=== PATIENT | male | born 1985 | race Caucasian/White ===

== ENCOUNTER 2023-06-17 09:21 | Emergency (ER) | payer OTHER, SELFPAY ==
[2023-06-17 09:28] VITALS: BP 121/76
[2023-06-17 09:42] LABS: % Basophils 0.3 % (0-2); % Eosinophils 2.3 % (0-6); % Immature Granulocytes 0.3 % (0-0.5); % Lymphocytes 44.5 % (20.5-51.1); % Monocytes 6.8 % (1.7-9.3); % Neutrophils 45.8 % (42.2-75.2); Absolute Eosinophils 0.1 10^3/uL (0-0.7); Absolute Lymphocytes 1.8 10^3/uL (1.2-3.4); Absolute Monocytes 0.3 10^3/uL (0.1-0.6); Absolute Neutrophils 1.8 10^3/uL (1.4-6.5); Hematocrit 43.1 % (39.0-52.0); Hemoglobin 14.7 g/dL (13.0-18.0); Mean Corp Hgb Conc. 34.1 g/dL (33.0-37.0); Mean Corpuscular Hgb 27.4 pg (27.0-31.0); Mean Corpuscular Volume 80.3 fL (80.0-94.0); Mean Platelet Volume 11.1 fL (7.4-10.4); Nucleated Red Blood Cells % 0 % (-); Platelet Count 165 10^3/uL (130-400); Red Blood Cell Count 5.37 10^6/uL (4.70-6.10); Red Cell Dist. Width 12.4 % (11.5-14.5)
[2023-06-17 10:02] LABS: ALT (SGPT) 44 U/L (0-50); AST (SGOT) 28 U/L (17-59); Albumin 4.3 g/dl (3.5-5.0); Alkaline Phosphatase 72 U/L (38-126); Blood Urea Nitrogen 12 mg/dl (9-20); Calcium 9.4 mg/dl (8.4-10.2); Carbon Dioxide 29 mmol/L (22-30); Chloride 105 mmol/L (98-107); Glucose 106 mg/dl (70-99); Lipase 93 U/L (23-300); Sodium 138 mmol/L (135-145); Total Bilirubin 0.9 mg/dl (0.2-1.3); Total Protein 7.1 g/dl (6.3-8.2); eGFR > 60.00
[2023-06-17 10:10] LABS: Troponin I < 0.012 ng/ml
--- NOTE | 2023-06-17 11:49 | ED.GENMED ---
History of Present Illness
General
Chief Complaint: Chest Pain
Source: patient
Exam Limitations: none
Time Seen by Provider: 06/17/23 10:30
Nursing documentation reviewed up to this point in time: agreed with
Travel History
Have you had any contact with someone who has COVID-19?: No
Do you have any symptoms of coronavirus? Fever > 100 degrees, chills, cough, shortness of breath, sore throat, loss of taste or smell, muscle aches, or headache?: No
History of Present Illness
History of Present Illness:
38-year-old male with history history of GERD presenting to the emergency department today with concerns of discomfort radiating from the upper abdomen to through the chest. Also has noticed a slight shortness of breath woke him up at 2 AM this
morning roughly 8 hours prior to arrival to the emergency department. Claims the pain is mild and pressure achy in character. No vomiting no diaphoresis. Denies any history of blood clots leg swelling recent trauma surgery immobilization.
Review of Systems
Review of Systems
Allergies reviewed?: Yes
All Other Systems: ROS reviewed and negative except as documented in HPI and ROS
Phy Exam
Physical Exam
Physical Exam:
GENERAL: Alert , in no apparent distress
EYE: pupils equal and reactive
NECK: Supple, no significant adenopathy.
ENT: o/p clr, mmm.
CARDIAC: Regular rate and rhythm .
LUNGS: Clear breath sounds bilaterally, no acute respiratory distress, no wheezes/rales/rhonchi
ABDOMEN: Soft, without focal tenderness, no r/g, no cvat
NEUROLOGICAL: Alert and oriented, no focal neuro deficits
SKIN: Warm and dry, skin intact.
MUSCULOSKELETAL: No edema, well perfused.
PSYCH: Normal and appropriate interaction.
Scores
Heart Score for Chest Pain Patients
STEMI patient?: No
History: Slightly or Non-Suspicious
ECG: Normal
Age: </= 45 years
Risk Factors: No Risk Factors
Troponin: </= Normal Limit
Heart Score for Chest Pain Patients: 0
Heart Score Risk: 2.5% MACE over next 6 weeks
Course
Orders/Labs/Results
Orders:
Orders
06/17/23 09:27
Electrocardiogram (*1) Urgent
Reason for Study: Chest Pain
EKG- Treatment ONCE
06/17/23 09:37
Complete Blood Count/With Diff Urgent
Comprehensive Metabolic Panel Urgent
Lipase Urgent
Troponin I Urgent
06/17/23 10:52
Chest [CR Chest - 2 Views ] Urgent
Comment:
Reason For Exam: cp
Abnormal Lab Results
06/17/23
09:37
WBC 4.0 L 10^3/uL
(4.8-10.8)
MPV 11.1 H fL
(7.4-10.4)
Glucose 106 H mg/dl
(70-99)
06/17/23 09:37
06/17/23 09:37
Vital Signs
Initial and Last Documented VS:
Initial Vital Signs
Temp Pulse Resp BP Pulse Ox
98.6 F 78 16 121/76 98
06/17/23 09:28 06/17/23 09:28 06/17/23 09:28 06/17/23 09:28 06/17/23 09:28
Last Documented Vital Signs
Temp Pulse Resp BP Pulse Ox
98.6 F 78 16 121/76 98
06/17/23 09:28 06/17/23 09:28 06/17/23 09:28 06/17/23 09:28 06/17/23 09:28
MDM/Problems Addressed
MDM/Problems Addressed:
38-year-old male presenting to the emergency department today with concerns of chest discomfort ongoing for roughly 8 hours prior to arrival to the emergency department described as achy pressure. Vital signs here are normal patient well-appearing
no acute distress normal heart lung examination. Normal labs troponin negative lipase negative no reproducible abdominal tenderness. Chest x-ray without acute findings EKG is normal in appearance patient has a low heart score low risk for ACS.
Very low risk for dissection as symptoms do not seem to be consistent with this and normal chest x-ray. Patient is also PERC negative. No apparent life threat cause of symptoms at this time advised for close outpatient follow-up. Return
precautions given.
*Critical Care Note
Total Time (30-74mins, 75-104mins- exclusive of procedures): Not Applicable
ED Attending Note
-
Portions of this chart may have been created with voice recognition software.� Occasional wrong word or��sound alike� substitutions may have occurred due to the inherent limitations of voice recognition software.
Discharge Plan
Departure
Patient Disposition: Home (Routine Discharge)
Date of Disposition: 06/17/23
Time of Disposition: 12:02
Patient with high blood pressure during this ER visit?: No
Condition: Good
Covid-19: Not Applicable
Discharge Problem:
Chest pain
Instructions: Chest Pain PCP Follow Up
Prescriptions:
No Action
famotidine 20 mg tablet
20 mg PO BID Qty: 14 0RF
Referrals:
Bessie Polanco, DO [Family Provider] -
Activity Restrictions/Additional Instructions:
You came to the emergency department today with concerns of chest discomfort. He had a reassuring evaluation. Please go closely with your primary care doctor within 1 to 2 weeks for reassessment. Return to the emergency department for worsening,
new or concerning symptoms.
Interventions
Interventions:
*Risk Screen - Suicide Last Done: 06/17/23 11:03
*General Assessment Last Done: 06/17/23 11:03
*Neglect/Abuse Screening Last Done: 06/17/23 11:03
ED- Fall Risk Assessment Last Done: 06/17/23 11:03
*ED COVID-19 Vaccine History Last Done: 06/17/23 09:28
ED- Cardiac Assessment Last Done: 06/17/23 11:03
[2023-06-17 12:10] VITALS: BP 120/70
== END 2023-06-17 12:15 | disposition home or self-care (01) ==
LOC: EMR 09:21
PROVIDERS: EMERGENCY PHYSICIAN Emergency Medicine; FAMILY PHYSICIAN Family Medicine
DX: R07.89 Other chest pain (principal); K21.9 Gastro-esophageal reflux disease without esophagitis
CPT/HCPCS: 99285; 71046; 80053; 83690; 84484; 85025; 93005

== ENCOUNTER → 2023-10-25 10:25 | Outpatient (REF) | payer OTHER, SELFPAY | LOC: RAD 10:25 | PROVIDERS: ATTENDING PHYSICIAN Internal Medicine Cardiovascular Disease; FAMILY PHYSICIAN Nurse Practitioner Family | DX: R07.89 Other chest pain (principal) | CPT/HCPCS: 75574; Q9967 ==

== ENCOUNTER 2024-08-26 21:00 | Emergency (ER) | payer OTHER, SELFPAY ==
[2024-08-26 21:09] VITALS: BP 133/81
--- NOTE | 2024-08-26 23:01 | ED.GENMED ---
History of Present Illness
General
Chief Complaint: Headache
Source: patient
Exam Limitations: none
Time Seen by Provider: 08/26/24 23:00
History of Present Illness
History of Present Illness:
See MDM
Past History
Past History
ED Past Medical History: Asthma and GERD
ED Past Surgical History: Other (Nasal Surgery)
Social History
Tobacco: Non-smoker
Alcohol: None
Phy Exam
Physical Exam
Physical Exam:
See MDM
Course
Orders/Labs/Results
Orders:
Orders
08/26/24 21:[address] [CT Head W/o Iv Contrast] Urgent
Comment:
Reason For Exam: head pain x 4 days
08/26/24 23:29
Dexamethasone Pf [Decadron] 10 mg PO NOW STA
Ibuprofen [Motrin] 600 mg PO NOW STA
Vital Signs
Initial and Last Documented VS:
Initial Vital Signs
Temp Pulse Resp BP Pulse Ox
98.6 F 77 16 133/81 99
08/26/24 21:09 08/26/24 21:09 08/26/24 21:09 08/26/24 21:09 08/26/24 21:09
Last Documented Vital Signs
Temp Pulse Resp BP Pulse Ox
98.6 F 77 16 133/81 99
08/26/24 21:09 08/26/24 21:09 08/26/24 21:09 08/26/24 21:09 08/26/24 21:09
MDM/Problems Addressed
Differential Diagnosis Includes:
HPI and MDM Narrative:
39-year-old male presenting for evaluation of headache. Patient describes the headache as 'brain pressure'. This been ongoing for about 4 days. Patient was concerned because it appears to be radiating to the back of his head now. This is
associated with nausea but he denies vomiting or diarrhea. Patient is concerned that this could be the beginning of a sinus infection. He states these are the symptoms he gets when he has sinusitis. He has no significant congestion on exam.
Posterior pharynx clear. TMs clear. Will give one-time dose of Decadron and Motrin. CT head was ordered prior to my assess
Physical exam
General: Well appearing and non-toxic
HEENT: protecting airway. TMs clear. Posterior pharynx clear. Pupils equal react
Neck: appears supple
CV: No evidence of cyanosis
Resp: No accessory muscle use
Abd: Non-distended
Extremities: No deformities
Neuro: alert
Psych: Normal affect
Skin: Intact
Problems Addressed including Acute and Chronic Conditions affecting care:
1. Headache
Acuity: acute
Prognosis: stable
Details: Given duration of symptoms, CT head was ordered
Updates
CT consistent with significant sinusitis. Discussed outpatient follow-up with ENT. Will start doxycycline given amoxicillin allergy
Differential Diagnosis (but not limited to): Migraine, tension headache, intracranial mass
Testing considered: Blood work
Drug therapy (if applicable): OTC meds, please see d/c instruction regarding Rx drugs
Amount and/or Complexity of Data Reviewed
Clinical info obtained from: Patient
External data reviewed: N/A
Labs I independently reviewed (but not limited to): N/A
Radiology: The CT scan was personally and independently reviewed. In addition, official CT report reviewed.
Pulse Ox: not hypoxic
EKG independently reviewed: N/A
Identification Clerk: N/A
Critical Care: N/A
Risk of Complication:
Social Determinants of health: Good social support
Discussed with other providers: N/A
Escalation of Care includes Admit/Obs: After being observed in the Emergency Department, pt stable for discharge.
Occasional wrong word or 'sound a like' substitutions may have occurred due to the inherent limitations of voice recognition software. Read the chart carefully and recognize, using context, where substitutions have occurred.
*Critical Care Note
Total Time (30-74mins, 75-104mins- exclusive of procedures): Not Applicable
ED Attending Note
-
Portions of this chart may have been created with voice recognition software.� Occasional wrong word or��sound alike� substitutions may have occurred due to the inherent limitations of voice recognition software.
Discharge Plan
Departure
Patient Disposition: Home (Routine Discharge)
Date of Disposition: 08/27/24
Time of Disposition: 00:04
Patient with high blood pressure during this ER visit?: No
Discharge Problem:
Acute sinusitis
Instructions: Sinusitis in adults - ED discharge instructions
Prescriptions:
New
doxycycline hyclate 100 mg capsule
100 mg PO BID Qty: 14 0RF
No Action
famotidine 20 mg tablet
20 mg PO BID Qty: 14 0RF
Referrals:
NONE,* [Family Provider] -
Vladislav Longo MD [Active] -
Activity Restrictions/Additional Instructions:
Please return for any worsening symptoms.
You may return at any time if you have further concerns.
Please follow up with your doctor at the first available appointment, preferably this week.
Please make appointment to follow-up with ENT.
Thank you for choosing [facility].
Interventions
Interventions:
*Risk Screen - Suicide Last Done: 08/26/24 21:09
*Neglect/Abuse Screening Last Done: 08/26/24 21:09
Discharge Date and Time
Print Language: ANGOLAN
[2024-08-26] MEDS: DECADRON 10 MG PO (23:46)
[2024-08-26] MEDS: MOTRIN 600 MG PO (23:46)
[2024-08-27 00:13] VITALS: BP 115/75
[2024-08-27] MEDS: VIBRAMYCIN 100 MG PO (00:13)
== END 2024-08-27 00:16 | disposition home or self-care (01) ==
LOC: EMR 21:00
PROVIDERS: EMERGENCY PHYSICIAN Student in an Organized Health Care Education/Training Program
DX: J01.90 Acute sinusitis, unspecified (principal); J45.909 Unspecified asthma, uncomplicated
CPT/HCPCS: 99284; 70450